=== PATIENT | male | born 1935 | race Caucasian/White ===

== ENCOUNTER 2017-11-22 06:57 | Outpatient (CLI) | payer MEDICARE, MEDICAID ==
[~2017-11-22 06:57] MED LIST: APIX5TAB3 PO; FURO40TA4 PO; HYDR-569 PO; LISI-604 PO; POTA20TA19 PO
== END 2017-11-22 23:59 | disposition home or self-care (01) ==
LOC: DIABETIC 06:57
PROVIDERS: ATTEND Family Medicine
DX: N18.9 Chronic kidney disease, unspecified (principal); I50.9 Heart failure, unspecified; I11.0 Hypertensive heart disease with heart failure; C43.59 Malignant melanoma of other part of trunk
CPT/HCPCS: G0108

== ENCOUNTER 2018-01-12 02:44 | Outpatient (CLI) | payer MEDICARE, MEDICAID | END 2018-01-12 23:59 | disposition home or self-care (01) | LOC: DIABETIC 02:44 | PROVIDERS: ATTEND Family Medicine | DX: E11.22 Type 2 diabetes mellitus with diabetic chronic kidney disease (principal) | CPT/HCPCS: 97802 ==

== ENCOUNTER 2019-01-24 13:14 | Inpatient (IN) | payer MEDICARE, MEDICAID | END 2019-01-28 14:50 | LOC: ER 13:14 → ED HOLD 17:05 → ORTHO 4S 19:08 | DX: S72.001A Fracture of unspecified part of neck of right femur, initial encounter for closed fracture (principal); G20 Parkinson's disease ==